=== PATIENT | male | born 1980 ===

== ENCOUNTER 2024-11-18 15:12 | Emergency (ER) | payer OTHER ==
[~2024-11-18] VITALS: Ht 177.8 cm; Wt 55.8 kg
[2024-11-18 15:28] VITALS: BP 122/77; PULSE 79; O2SAT 99
[2024-11-18] MEDS ORDERED: AMOX-580 PO (16:01)
[2024-11-18 16:08] VITALS: RESP 16
[2024-11-18] MEDS: ketorolac trometh 15mg/ml vial 15 MG/ML ML IM ONE (16:08)
[2024-11-18 16:40] VITALS: TEMP 98.4
== END 2024-11-18 16:43 | disposition home or self-care (01) ==
LOC: ER 15:14
DX: K08.89 Other specified disorders of teeth and supporting structures (principal)
CPT/HCPCS: 96372; 99283; J1885